=== PATIENT | female | born 1950 | race Caucasian/White ===

== ENCOUNTER 2017-03-31 17:43 | Emergency (ER) | payer MEDICARE, OTHER | END 2017-03-31 18:46 | disposition home or self-care (01) | LOC: ER 17:43 | DX: N39.0 Urinary tract infection, site not specified (principal); E78.5 Hyperlipidemia, unspecified; J44.9 Chronic obstructive pulmonary disease, unspecified; E11.9 Type 2 diabetes mellitus without complications; K21.9 Gastro-esophageal reflux disease without esophagitis; I10 Essential (primary) hypertension; Z90.711 Acquired absence of uterus with remaining cervical stump; Z96.641 Presence of right artificial hip joint; Z79.82 Long term (current) use of aspirin; Z79.84 Long term (current) use of oral hypoglycemic drugs; Z79.899 Other long term (current) drug therapy ==